=== PATIENT | male | born 1985 | race African-American/Black ===

== ENCOUNTER 2025-04-25 14:22 | Outpatient (CLI) | payer OTHER ==
[2025-04-25 16:39] LABS: #Basophils 0.03 10x3/uL (0.0-0.2); #Eosinophils 0.32 10x3/uL (0.0-0.5); #Monocytes 0.81 10x3/uL (0.0-1.1); #Neutrophils 2.41 10x3/uL (1.5-8.4); %Basophils 0.5 % (0.0-2.0); %Eosinophils 5.4 % (0.0-6.0); %Lymphocytes 39.8 % (18.0-47.0); %Monocytes 13.6 % (0.0-10.0); %Neutrophils 40.4 % (40.0-75.0); Hematocrit 48.1 % (38.8-50.0); Hemoglobin 15.5 g/dL (13.5-17.5); Mean Corpuscular Hemoglobin 26.3 pg (27.0-33.0); Mean Corpuscular Volume 81.7 fL (81.2-95.1); Platelet Count 237 10x3/uL (150-450); Red Blood Cell (RBC) Count 5.89 10x6/uL (4.32-5.72); White Blood Cell (WBC) Count 5.96 10x3/uL (3.5-10.5)
[2025-04-25 16:41] LABS: Anion Gap 15 mmol/L (10-20); BUN (Urea Nitrogen) 17 mg/dL (8.9-20.6); Calc. Creatinine Clearance 0 mL/min (70-130); Calcium 9.3 mg/dL (7.8-10.44); Carbon Dioxide 25 mmol/L (22-29); Chloride 101 mmol/L (98-107); Glucose 65 mg/dL (70-105); Potassium 3.7 mmol/L (3.5-5.1); Sodium 137 mmol/L (136-145)
== END 2025-04-25 14:23 | disposition home or self-care (01) ==
LOC: CSHLAB 14:22
PROVIDERS: ATTEND Student in an Organized Health Care Education/Training Program
DX: Z01.818 Encounter for other preprocedural examination (principal)
CPT/HCPCS: 80048; 85025; 93005; 93010

== ENCOUNTER 2025-04-30 08:09 | Day surgery (SDC) | payer OTHER ==
[2025-04-25 15:06] VITALS: BMI 37.6
[2025-04-30] MEDS ORDERED: PROPOFOL 40 ML ONE (10:48)
[2025-04-30] MEDS ORDERED: Lidocaine 1% PF 5 ML VIAL ONE (10:48)
[2025-04-30] MEDS ORDERED: Rocuronium Bromide 10 MG/ML (10ML VIAL) ONE (10:48)
[2025-04-30] MEDS ORDERED: CEFAZOLIN 2 GM VIAL ONE (10:56)
[2025-04-30] MEDS ORDERED: Bupivacaine/Epinephrine 0.25% 30 ML VIAL ONE (10:57)
[2025-04-30] MEDS ORDERED: PHENYLEPHRINE-NS 100 MCG/ML 10 ML SYRINGE ONE ×2 (12:14→13:17)
[2025-04-30] MEDS ORDERED: SUGAMMADEX SODIUM 200 MG/2 ML VIAL ONE ×2 (12:42→12:53)
[2025-04-30] MEDS ORDERED: Ketorolac Tromethamine 30 MG (1 mL) VIAL ONE (12:49)
[2025-04-30] MEDS ORDERED: HYDROcodone/Acetaminophen 5/325 mg Tablet ONE (15:03)
== END 2025-04-30 17:30 | disposition home or self-care (01) ==
LOC: CSHSDC 08:09
PROVIDERS: ATTEND Student in an Organized Health Care Education/Training Program
PROC: 0WUF4JZ Supplement Abdominal Wall with Synthetic Substitute, Percutaneous Endoscopic Approach (ICD-10-PCS; principal; 2025-04-30)
DX: K42.0 Umbilical hernia with obstruction, without gangrene (principal)
CPT/HCPCS: C1781; J1100; J1885; J2250; J2704; S2900